=== PATIENT | female | born 1965 | race Caucasian/White ===

== ENCOUNTER 2018-02-07 07:56 | Outpatient (CLI) | payer OTHER | END 2018-02-07 07:57 | disposition home or self-care (01) | LOC: BICMAMMO 07:56 | PROVIDERS: ATTEND Family Medicine | DX: Z12.31 Encounter for screening mammogram for malignant neoplasm of breast (principal); R92.1 Mammographic calcification found on diagnostic imaging of breast | CPT/HCPCS: 77067 ==

== ENCOUNTER 2018-05-22 08:09 | Outpatient (CLI) | payer BC ==
--- NOTE | 2018-05-22 10:27 | ULT ---
COMPLETE ABDOMINAL ULTRASOUND: Comparison: None. History: Abdominal epigastric pain. Technique: Multiplanar grayscale and color doppler images were obtained in a complete abdominal ultra sound. FINDINGS: The liver is normal in echogenicity without focal lesions or intrahepatic duct dilatation. The gallbl adder is normal without stones, sludge, gallbladder wall thickening or pericholecystic fluid. The com mon bile duct is normal measuring 3 mm. The aorta and inferior vena cava are normal in caliber. There visualized portions of the pancreas are unremarkable. The spleen is normal in echogencity without focal lesion measuring 11.1 cm in length. Both kidneys are normal in echogenicity without hydronephrosis or calculus and measure 9.3 and 9.5 cm in length on the right and left, respectively. IMPRESSION: Unremarkable abdominal ultrasound. POS: ROSIE
== END 2018-05-22 08:10 | disposition home or self-care (01) ==
LOC: BICULT 08:09
PROVIDERS: ATTEND Family Medicine
DX: R10.13 Epigastric pain (principal)
CPT/HCPCS: 76700

== ENCOUNTER 2018-05-31 08:28 | Outpatient (CLI) | payer BC ==
--- NOTE | 2018-05-31 13:31 | NM ---
[facility] HEPATOBILIARY SCAN: RADIOPHARMACEUTICAL: Technetium 99m mebrofenin 5.3 millicuries IV. FINDINGS: There is visualization of the gallbladder within 10 minutes of imaging. Bowel activity is visualized at less than 1 hour or imaging. There is homogeneous radiotracer activity seen within the liver. Subsequently, 8 oz of protein supplementation was administered to the patient for the purposes of liliana culation of ejection fraction of the gallbladder. This is measured at greater than 70%, which is nor mal. IMPRESSION: 1. Visualization of the gallbladder excludes cystic duct obstruction. 2. Normal gallbladder ejection fraction makes biliary dyskinesia unlikely. POS: [facility]
== END 2018-05-31 08:29 | disposition home or self-care (01) ==
LOC: NM 08:28
PROVIDERS: ATTEND Family Medicine
DX: K21.9 Gastro-esophageal reflux disease without esophagitis (principal); E84.19 Cystic fibrosis with other intestinal manifestations
CPT/HCPCS: 78227; A9537

== ENCOUNTER 2018-06-06 16:00 | Outpatient (CLI) | payer BC | END 2018-06-06 16:01 | disposition home or self-care (01) | LOC: SLEEPLAB 16:00 | PROVIDERS: ATTEND Family Medicine | DX: G47.33 Obstructive sleep apnea (adult) (pediatric) (principal); R53.83 Other fatigue; R06.83 Snoring; R09.02 Hypoxemia | CPT/HCPCS: 95806 ==